=== PATIENT | female | born 1970 | race Caucasian/White ===

== ENCOUNTER → 2016-08-08 | Outpatient (CLI) | payer BC ==
[~2016-08-08] MED LIST: CLR10 PO; DROS3TAB PO; IBUP-103 PO; MULT-506 PO
== END | disposition home or self-care (01) ==
LOC: C.PAPS 14:04
PROVIDERS: ATTEND Obstetrics & Gynecology
DX: Z01.419 Encounter for gynecological examination (general) (routine) without abnormal findings (principal); R87.616 Satisfactory cervical smear but lacking transformation zone

== ENCOUNTER → 2016-11-06 | Outpatient (CLI) | payer BC ==
--- NOTE | 2016-11-07 15:27 | MAMMOGRAPHY REPORT ---
BILATERAL DIGITAL SCREENING MAMMOGRAM TOMOSYNTHESIS WITH CAD: 11/06/2016 CLINICAL HISTORY: Routine screening. Patient has no complaints. TECHNIQUE: Breast tomosynthesis in addition to standard 2D mammography was performed. Current study was also evaluated with a Computer Aided Detection (CAD) system. COMPARISON: Comparison is made to exams dated: 11/04/2015 mammogram, 10/30/2014 mammogram, 10/29/2013 mammogram, 10/28/2012 mammogram, 10/30/2011 ultrasound, and 10/30/2011 mammogram - [facility]. BREAST COMPOSITION: The tissue of both breasts is heterogeneously dense, which may obscure small ma sses. FINDINGS: There are stable intramammary lymph nodes in the upper outer middle one third of the right breast. No new suspicious mass, architectural distortion or cluster of microcalcifications is seen . IMPRESSION: ACR BI-RADS CATEGORY 1: NEGATIVE There is no mammographic evidence of malignancy. A 1 year screening mammogram is recommended. The p atient will receive written notification of the results. Approximately 10% of breast cancers are not detected with mammography. A negative mammographic repor t should not delay biopsy if a clinically suggestive mass is present. Jen Zhu M.D. ay/:11/06/2016 16:51:36 [employer] Clerk: Christen Castelan, [facility] letter sent: Normal 1/2 BI-RADS Code: ACR BI-RADS Category 1: Negative
== END | disposition home or self-care (01) ==
LOC: C.MAMM 10:19
PROVIDERS: ATTEND Obstetrics & Gynecology
DX: Z12.31 Encounter for screening mammogram for malignant neoplasm of breast (principal)

== ENCOUNTER → 2017-03-22 | Day surgery (SDC) | payer BC ==
[2017-03-08 14:11] VITALS: Ht 167.6 cm; Wt 69.1 kg
[~2017-03-22] VITALS: Ht 167.6 cm; Wt 69.1 kg
[~2017-03-22] MED LIST changes: +LIDOCAINE HCL 2% 2 ML VIAL (20MG/ML) ONE; +MIDAZOLAM HCL 1 MG/ML 2ML VIAL ONE; +ONDANSETRON INJ 2 MG/ML 2 ML VIAL ONE; +PROPOFOL IV EMULSION 10 MG/ML 20 ML VIAL IV ONE; +SODIUM CHLORIDE 0.9% 500ML 500 ML IV ONE
[2017-03-22 15:12] VITALS: TEMP 37.3
--- NOTE | 2017-03-22 16:02 | Endo History and Physical ---
History & Physical Date of Service: Mar 22, 2017. Chief Complaint: SCREENING BEFORE SURGERY, ENDOMETRIOSIS Referring Physician: MALCOLM REYNOLDS PA-C History of Present Illness 46 yo CF who presents for screening colonoscopy. Past Surgical History Hx Cardiac Surgery: No Hx Internal Defibrillator: No Hx Pacemaker: No Hx Abdominal Surgery: Yes (FABIAN, LAPAROSCOPY) Hx of Implantable Prosthesis: No Hx Post-Op Nausea and Vomiting: No Hx Cancer Surgery: Yes (MELANOMA REMOVAL) Hx Thoracic Surgery: No Hx Orthopedic: No Hx Urinary Tract Surgery: No Family History None Social History Smoking Status: Former Smoker Hx Substance Use: No Hx Alcohol Use: Yes (OCCASIONAL) Allergies Coded Allergies: No Known Allergies (Verified , 03/22/17) Current Medications Reported Home Medications Medications Dose Route/Sig Max Daily Dose Days Date Category Claritin (Loratadine) 10 Mg Tab 10 Mg PO QAM 09/06/13 Reported Multivitamin (Multivitamins) Tab 1 Tab PO QAM 09/06/13 Reported Advil (Ibuprofen) 200 Mg Tab 400-600 Mg PO Q6H PRN 09/06/13 Reported Ocella (Drospirenone-Ethinyl Estradiol) 1 Tab Tab 1 Tab PO QPM 09/24/09 Reported Vital Signs Weight (Kilograms): 69.09 Height (Feet): 5 Height (Inches): 6 Date Time Temp Pulse Resp B/P (MAP) Pulse Ox O2 Delivery O2 Flow Rate FiO2 03/22/17 15:12 37.3 94 16 142/67 (92) 99 Room Air Physical Exam General Appearance: WD/WN, no apparent distress Respiratory/Chest: Auscultation: breath sounds normal Cardiovascular: Heart Auscultation: RRR Abdomen: Bowel Sounds: normal Inspection & Palpation: soft, non-distended, no tenderness, guarding & rebound Assessment and Plan Assessment: 46 yo CF who presents for screening colonoscopy. Plan: Proceed with colonoscopy.
--- NOTE | 2017-03-22 16:27 | Discharge Instructions ---
Endoscopy Patient Instructions Date / Procedure(s) Performed Mar 22, 2017. Colonoscopy Allergy Information Coded Allergies: No Known Allergies (Verified , 03/22/17) Discharge Date / Findings Mar 22, 2017. Internal hemorrhoids Medication Instructions OK to resume all medications today as prescribed Reported Home Medications Medications Dose Route/Sig Max Daily Dose Days Date Category Claritin (Loratadine) 10 Mg Tab 10 Mg PO QAM 09/06/13 Reported Multivitamin (Multivitamins) Tab 1 Tab PO QAM 09/06/13 Reported Advil (Ibuprofen) 200 Mg Tab 400-600 Mg PO Q6H PRN 09/06/13 Reported Ocella (Drospirenone-Ethinyl Estradiol) 1 Tab Tab 1 Tab PO QPM 09/24/09 Reported Provider Instructions Activity Restrictions - No exercising or heavy lifting for 24 hours. - Do not drink alcohol the day of the procedure. - Do not drive a car or operate machinery until the day after the procedure. - Do not make any important decisions or sign important papers in 24 hours after the procedure. Following Day: - Return to full activity which may include returning to work/school. Diet Start your diet with liquids and light foods (jello, soup, juice, toast). Then eat your usual diet if not nauseated. Treatment For Common After Affects For mild abdominal pain, bloating, or excessive gas: - Rest - Eat lightly - Lie on right side Follow-Up Information Follow-up with MALCOLM REYNOLDS PA-C as scheduled Anesthesia Information What You Should Know You have had a procedure that required some medicine to reduce anxiety and discomfort. This treatment is called moderate sedation. After receiving the treatment, you may be sleepy, but you will be able to breathe on your own. The effects of the treatment may last for several hours. Follow these instructions along with Activity/Diet recommendations noted above: * Do NOT do anything where dizziness or clumsiness would be dangerous. * Rest quietly at home today, then you can be up and about tomorrow. * Have a responsible person stay with you the rest of today. * You may have had an I.V. today. If so, you may take the dressing off later today. Recommendations Call your doctor if: * Trouble breathing * Continuous vomiting for more than 24 hours * Temperature above 101 degrees * Severe abdominal pain or bloating * Pain not relieved by pain medicine ordered * There is increased drainage or redness from any incision * A large amount of rectal bleeding greater than 2-3 tablespoons. (If you had a polyp/s removed or have hemorrhoids, a small amount of blood - from the rectum is to be expected.) * You have any unanswered questions or concerns. IN THE EVENT OF A SERIOUS EMERGENCY, GO TO THE NEAREST EMERGENCY ROOM Your discharge instructions were prepared by provider Herbert Newman. Patient Instructions Signature Page Gretel Smith Patient (or Guardian) Signature/Date: I have read and understand the instructions given to me by my caregivers. Caregiver/RN/Doctor Signature/Date: The above-named patient and/or guardian has received patient instructions on this date. + Original Patient Signature Page (only) stays with chart. Please make copy for patient.
--- NOTE | 2017-03-22 16:32 | GI REPORT ---
Procedure Date: 03/22/2017 4:05 PM Procedure: Colonoscopy Indications: Screening for colorectal malignant neoplasm Medicines: Monitored Anesthesia Care Complications: No immediate complications. Estimated Blood Loss: Estimated blood loss: none. Procedure: Pre-Anesthesia Assessment: - Prior to the procedure, a History and Physical was performed, and patient medications and allergies were reviewed. The patient's tolerance of previous anesthesia was also reviewed. The risks and benefits of the procedure and the sedation options and risks were discussed with the patient. All questions were answered, and informed consent was obtained. Prior Anticoagulants: The patient has taken no previous anticoagulant or antiplatelet agents. ASA Grade Assessment: II - A patient with mild systemic disease. After reviewing the risks and benefits, the patient was deemed in satisfactory condition to undergo the procedure. After I obtained informed consent, the scope was passed under direct vision. Throughout the procedure, the patient's blood pressure, pulse, and oxygen saturations were monitored continuously. The scope was introduced through the anus and advanced to the terminal ileum. The colonoscopy was performed without difficulty. The patient tolerated the procedure well. The quality of the bowel preparation was good. The terminal ileum, ileocecal valve, appendiceal orifice, and rectum were photographed. Findings: Non-bleeding internal hemorrhoids were found during retroflexion. The hemorrhoids were small. Impression: - Non-bleeding internal hemorrhoids. - No specimens collected. Recommendation: - Resume previous diet. - Continue present medications. - Repeat colonoscopy in 10 years for surveillance. - Return to primary care physician as previously scheduled. Herbert Newman DO 03/22/2017 4:31:54 PM This report has been signed electronically. Note Initiated On: 03/22/2017 4:05 PM I attest to the content of the Intraoperative Record and orders documented therein, exceptions below
[2017-03-22 16:57] VITALS: BP 124/81; PULSE 81; O2SAT 100
--- NOTE | 2017-03-22 18:39 | Anesthesiology Progress Note ---
Anesthesia Post Op Note Date & Time Mar 22, 2017 at 18:39 Vital Signs Pain Intensity: 0 Vital Signs Past 12 Hours Date Time Temp Pulse Resp B/P (MAP) Pulse Ox O2 Delivery O2 Flow Rate FiO2 03/22/17 16:57 81 16 124/81 (95) 100 Room Air 03/22/17 16:42 80 16 120/71 (87) 100 Room Air 03/22/17 16:27 90 16 108/66 (80) 96 Room Air 03/22/17 15:12 37.3 94 16 142/67 (92) 99 Room Air Notes Mental Status: alert / awake / arousable, participated in evaluation Pt Amnestic to Procedure: Yes Nausea / Vomiting: adequately controlled Pain: adequately controlled Airway Patency, RR, SpO2: stable & adequate BP & HR: stable & adequate Hydration State: stable & adequate Anesthetic Complications: no major complications apparent
== END | disposition home or self-care (01) ==
LOC: C.GI 14:50
PROVIDERS: ATTEND Internal Medicine
DX: Z12.11 Encounter for screening for malignant neoplasm of colon (principal); K64.8 Other hemorrhoids; N80.9 Endometriosis, unspecified

== ENCOUNTER → 2017-05-04 | Outpatient (CLI) | payer BC ==
[~2017-05-04] MED LIST changes: -LIDOCAINE HCL 2% 2 ML VIAL (20MG/ML) ONE; -MIDAZOLAM HCL 1 MG/ML 2ML VIAL ONE; -ONDANSETRON INJ 2 MG/ML 2 ML VIAL ONE; -PROPOFOL IV EMULSION 10 MG/ML 20 ML VIAL IV ONE; -SODIUM CHLORIDE 0.9% 500ML 500 ML IV ONE
[2017-05-04 16:07] LABS: URINE APPEARANCE CLOUDY (CLEAR); URINE BILIRUBIN NEG (NEG); URINE COLOR YELLOW; URINE EPITHELIAL CELL AUTO 0-5 /lpf (0-5); URINE NITRITE NEG (NEG); URINE PH 7.5 (4.5-7.5); URINE SPECIFIC GRAVITY 1.013 (1.000-1.030); UROBILINOGEN NEG (NEG)
[2017-05-04 16:13] LABS: MANUAL MICROSCOPIC REQUIRED? NO; REVIEW REQ? NO
== END | disposition home or self-care (01) ==
LOC: C.LAB1850 15:01
PROVIDERS: ATTEND Nurse Practitioner
DX: Z09 Encounter for follow-up examination after completed treatment for conditions other than malignant neoplasm (principal); N80.9 Endometriosis, unspecified; R30.0 Dysuria

== ENCOUNTER → 2017-11-07 | Outpatient (CLI) | payer BC ==
--- NOTE | 2017-11-07 15:29 | MAMMOGRAPHY REPORT ---
BILATERAL DIGITAL SCREENING MAMMOGRAM TOMOSYNTHESIS WITH CAD: 11/07/2017 CLINICAL HISTORY: Routine screening. Patient has no complaints. TECHNIQUE: Breast tomosynthesis in addition to standard 2D mammography was performed. Current study was also evaluated with a Computer Aided Detection (CAD) system. COMPARISON: Comparison is made to exams dated: 11/06/2016 mammogram, 11/04/2015 mammogram, 10/30/2014 m ammogram, 10/29/2013 mammogram, and 10/28/2012 mammogram - [facility]. BREAST COMPOSITION: The tissue of both breasts is heterogeneously dense, which may obscure small mas ses. FINDINGS: There is a possible subtle area of architectural distortion in the lateral, posterior righ t breast, only seen on the CC tomosynthesis images (slice 2031/65), for which additional spot compre ssion tomosynthesis views, possibly in exaggerated lateral positioning, and possible ultrasound are r ecommended. There are stable benign circumscribed masses in the lateral right breast. No other suspicious mass, architectural distortion or cluster of microcalcifications is seen. IMPRESSION: ACR BI-RADS CATEGORY 0: INCOMPLETE EVALUATION: NEED ADDITIONAL IMAGING EVALUATION The possible subtle area of architectural distortion in the lateral, posterior right breast needs add itional imaging evaluation. The patient will be called to schedule an appointment. Approximately 10% of breast cancers are not detected with mammography. A negative mammographic report should not delay biopsy if a clinically suggestive mass is present. Jen Zhu M.D. ay/:11/07/2017 14:18:49 Power Project Manager: Rupali Blackman RT(R)(M), [facility] letter sent: Addl Imaging 0 BI-RADS Code: ACR BI-RADS Category 0: Incomplete Evaluation: Need Additional Imaging Evaluation
== END | disposition home or self-care (01) ==
LOC: C.MAMM 10:35
PROVIDERS: ATTEND Physician Assistant
DX: Z12.31 Encounter for screening mammogram for malignant neoplasm of breast (principal)

== ENCOUNTER → 2017-11-14 | Outpatient (CLI) | payer BC ==
--- NOTE | 2017-11-14 15:47 | MAMMOGRAPHY REPORT ---
UNILATERAL RIGHT DIGITAL DIAGNOSTIC MAMMOGRAM TOMOSYNTHESIS: 11/14/2017 CLINICAL HISTORY: Callback from screening mammogram for possible right breast architectural distortio n. TECHNIQUE: Breast tomosynthesis in addition to standard 2D mammography was performed. Full right XC CL and spot compression right cc tomosynthesis images including C views were obtained. COMPARISON: Comparison is made to exams dated: 11/06/2016 mammogram, 11/07/2017 mammogram, 11/04/2015 m ammogram, 10/30/2014 mammogram, 10/29/2013 mammogram, and 10/28/2012 mammogram - [facility]. BREAST COMPOSITION: The tissue of the right breast is heterogeneously dense, which may obscure small masses. FINDINGS: The previously described area of questionable architectural distortion seen within the righ t lateral posterior breast on the CC tomosynthesis images does not persist on the additional views. Normal fibroglandular tissue is seen within this region, without evidence of a mass, architectural di stortion, or other suspicious abnormality seen on the additional images. IMPRESSION: ACR BI-RADS CATEGORY 2: BENIGN The previously described area of questionable architectural distortion in the right breast does not p ersist on the additional views. Findings are benign and compatible with normal fibroglandular tissue . There is no mammographic evidence of malignancy. A 1 year screening mammogram is recommended. The patient has been verbally notified of the results. Approximately 10% of breast cancers are not detected with mammography. A negative mammographic report should not delay biopsy if a clinically suggestive mass is present. Radha Quiñonez M.D. ah/:11/14/2017 12:54:37 Research Development Director: Levy GARCIA(R)(M), [facility] letter sent: Normal 1/2 BI-RADS Code: ACR BI-RADS Category 2: Benign
== END | disposition home or self-care (01) ==
LOC: C.MAMM 12:37
PROVIDERS: ATTEND Physician Assistant
DX: N64.89 Other specified disorders of breast (principal)

== ENCOUNTER → 2018-02-12 | Outpatient (CLI) | payer BC | END | disposition home or self-care (01) | LOC: C.LABBC 12:12 | PROVIDERS: ATTEND Nurse Practitioner Adult Health | DX: R39.9 Unspecified symptoms and signs involving the genitourinary system (principal) ==